=== PATIENT | male | born 1950 | race Caucasian/White ===

== ENCOUNTER 2019-02-22 10:46 | Emergency (ER) | payer OTHER ==
[~2019-02-22] VITALS: Ht 172.7 cm; Wt 75.0 kg
[2019-02-22 10:47] VITALS: Ht 172.7 cm; Wt 75.0 kg
[2019-02-22 12:28] VITALS: BP 152/91; PULSE 76; RESP 16
[2019-02-22] MEDS ORDERED: SULF1TAB31 PO (12:35)
--- NOTE | 2019-02-22 12:39 | ERD ---
ER Documentation Chief Complaint Chief Complaint LEFT LEG SWOLLEN PAINFUL X 10 DAYS. NO C/O SOB HPI 68-year-old male presents the emergency department complaining of a swollen leg over the last 10 days. Patient states that his leg issue started with a bump on the lower part of his left leg that he scratched and he believed that became infected. Over the last 10 days, he began developing increasing swelling of the left leg. He reported no fevers or chills. He reports no associated chest pain or palpitations. Patient describes no trauma. ROS All systems reviewed and are negative except as per history of present illness. Medications Home Meds Active Scripts Sulfamethoxazole/Trimethoprim* (Bactrim Ds* Tablet) 1 Each Tablet, 1 TAB PO BID, #14 TAB Prov:QUE GALARZA 02/22/19 PMhx/Soc History of Surgery: Yes (STENTS X 9 ) Anesthesia Reaction: No Hx Neurological Disorder: No Hx Respiratory Disorders: No Hx Cardiac Disorders: Yes (NM ) Hx Psychiatric Problems: No Hx Miscellaneous Medical Probl: No Hx Alcohol Use: No Hx Substance Use: No Hx Tobacco Use: No Smoking Status: Never smoker FmHx Noncontributory for chief complaint Physical Exam Vitals Vital Signs Date Temp Pulse Resp B/P (MAP) Pulse Ox O2 O2 Flow FiO2 Time Delivery Rate 02/22/19 76 16 152/91 99 Room Air 12:28 (111) 02/22/19 97.0 86 16 184/107 100 10:47 (132) Physical Exam GENERAL: The patient is well developed and appropriate for usual state of health in no apparent distress HEENT: Pupils equal, round, and reactive to light. EOMI. There is no scleral icterus. NECK: C-spine is soft and supple, there is no meningismus. There is no cervical lymphadenopathy. LUNGS: Clear to auscultation bilaterally. There are no rales, wheezes or rhonchi. HEART: Regular rate and rhythm, no murmurs, clicks, rubs or gallops. ABDOMEN: Soft, non-tender, non-distended. There are bowel sounds in all four quadrants. No rebound or guarding. EXTREMITIES: The left leg has edema from the mid calf down. There is an ulcer which appears to be somewhat healed on the medial aspect. There are minimal cellulitic changes. There is no crepitus noted. No compartment syndrome is noted with good range of motion to both active and passive range of motion. The other extremities appear normal. NEURO: The patient moves all four extremities with 5/5 strength. Cranial nerves II - XII are intact. Normal gait. Alert and oriented SKIN: There is no apparent rash or petechiae. HEME/LYMPHATIC: There is no evidence of excessive bruising or lymphedema. PSYCHIATRIC: The patient does not appear anxious or depressed. Result Diagram: 02/22/19 1125 02/22/19 1125 Results 24 hrs Laboratory Tests Test 02/22/19 11:25 White Blood Count 12.1 10^3/ul Red Blood Count 4.12 10^6/ul Hemoglobin 12.4 g/dl Hematocrit 38.3 % Mean Corpuscular Volume 93.0 fl Mean Corpuscular Hemoglobin 30.1 pg Mean Corpuscular Hemoglobin Concent 32.4 g/dl Red Cell Distribution Width 12.1 % Platelet Count 451 10^3/UL Mean Platelet Volume 9.5 fl Immature Granulocytes % 1.200 % Neutrophils % 75.3 % Lymphocytes % 13.7 % Monocytes % 6.1 % Eosinophils % 3.1 % Basophils % 0.6 % Nucleated Red Blood Cells % 0.0 /100WBC Immature Granulocytes # 0.140 10^3/ul Neutrophils # 9.1 10^3/ul Lymphocytes # 1.7 10^3/ul Monocytes # 0.7 10^3/ul Eosinophils # 0.4 10^3/ul Basophils # 0.1 10^3/ul Nucleated Red Blood Cells # 0.0 10^3/ul Prothrombin Time 13.8 Sec Prothrombin Time Ratio 1.1 INR International Normalized Ratio 1.05 Activated Partial Thromboplast Time 29.6 Sec Sodium Level 141 mmol/L Potassium Level 4.4 mmol/L Chloride Level 109 mmol/L Carbon Dioxide Level 26 mmol/L Anion Gap 6 Blood Urea Nitrogen 25 mg/dl Creatinine 1.41 mg/dl Est Glomerular Filtrat Rate mL/min 50 mL/min Glucose Level 98 mg/dl Calcium Level 9.0 mg/dl Troponin I < 0.012 ng/ml Procedures/MDM Patient was taken to a room, seen and evaluated. Comfort measures were initiated. Diagnostic tests were ordered and reviewed. 3 LEAD RHYTHM STRIP: Normal sinus rhythm without ectopy RADIOLOGY: Reviewed with the radiologist REEVALUATION: 1235: Diagnostic tests were appreciated discussed with the patient. He appeared comfortable following up as an outpatient. [employer] DECISION MAKIN-year-old male presents the emergency department with a painful swollen left leg. Initial diagnostic tests focused on the possibility of DVT versus cellulitis. The ultrasound is ruled out DVT. Patient does have a cellulitis but no indications of significant sepsis or systemic concerns. Patient will be treated as an outpatient with precautionary instructions provided to the patient to have his leg rechecked in the next 2 days as I have described that if this does not improve significantly, he may require IV antibiotics or other further testing. Departure Diagnosis: Primary Impression: Cellulitis Condition: Stable Patient Instructions: Cellulitis Additional Instructions: See your doctor for follow-up as discussed. I would like you to have this leg rechecked in the next 2 days. Take a copy of your test results, if appropriate, to this follow-up visit. See your doctor or return here if your symptoms do not improve as expected. At any time, please return to the emergency department for any change or worsening in her symptoms. QUE GALARZA Feb 22, 2019 12:39
== END 2019-02-22 12:40 | disposition home or self-care (01) ==
LOC: E/R 10:46
DX: L03.116 Cellulitis of left lower limb (principal); I25.2 Old myocardial infarction; Z98.61 Coronary angioplasty status
CPT/HCPCS: 71045; 80048; 84484; 85025; 85610; 85730; 93971